=== PATIENT | male | born 1950 | race Caucasian/White ===

== ENCOUNTER 2020-10-06 08:12 | Outpatient (CLI) | payer MEDICARE | END 2020-10-06 08:13 | disposition home or self-care (01) | LOC: CSHWCC 08:12 | PROVIDERS: ATTEND Nurse Practitioner Family | DX: I87.313 Chronic venous hypertension (idiopathic) with ulcer of bilateral lower extremity (principal); I87.2 Venous insufficiency (chronic) (peripheral); L97.212 Non-pressure chronic ulcer of right calf with fat layer exposed; I82.492 Acute embolism and thrombosis of other specified deep vein of left lower extremity; I89.0 Lymphedema, not elsewhere classified; L03.116 Cellulitis of left lower limb; R60.0 Localized edema; G90.09 Other idiopathic peripheral autonomic neuropathy; I87.8 Other specified disorders of veins; B96.89 Other specified bacterial agents as the cause of diseases classified elsewhere; W22.8XXD Striking against or struck by other objects, subsequent encounter | CPT/HCPCS: 99213; G0463 ==

== ENCOUNTER 2022-01-03 08:05 | Outpatient (CLI) | payer MEDICARE | END 2022-01-03 08:06 | disposition home or self-care (01) | LOC: CSHWCC 08:05 | PROVIDERS: ATTEND Nurse Practitioner Family | DX: S91.106D Unspecified open wound of unspecified lesser toe(s) without damage to nail, subsequent encounter (principal); S91.102D Unspecified open wound of left great toe without damage to nail, subsequent encounter; S81.801D Unspecified open wound, right lower leg, subsequent encounter; R60.0 Localized edema | CPT/HCPCS: 29581 ==

== ENCOUNTER 2022-01-18 15:10 | Outpatient (CLI) | payer MEDICARE | END 2022-01-18 15:11 | disposition home or self-care (01) | LOC: CSHWCC 15:10 | PROVIDERS: ATTEND Nurse Practitioner Family | DX: S81.801D Unspecified open wound, right lower leg, subsequent encounter (principal); S91.102D Unspecified open wound of left great toe without damage to nail, subsequent encounter; R60.0 Localized edema ==

== ENCOUNTER 2022-01-24 08:05 | Outpatient (CLI) | payer MEDICARE | END 2022-01-24 08:06 | disposition home or self-care (01) | LOC: CSHWCC 08:05 | PROVIDERS: ATTEND Nurse Practitioner Family | DX: S91.106D Unspecified open wound of unspecified lesser toe(s) without damage to nail, subsequent encounter (principal); S91.102D Unspecified open wound of left great toe without damage to nail, subsequent encounter; S81.801D Unspecified open wound, right lower leg, subsequent encounter; R60.0 Localized edema ==

== ENCOUNTER 2022-02-01 08:09 | Outpatient (CLI) | payer MEDICARE | END 2022-02-01 08:10 | disposition home or self-care (01) | LOC: CSHWCC 08:09 | PROVIDERS: ATTEND Nurse Practitioner Family | DX: I87.332 Chronic venous hypertension (idiopathic) with ulcer and inflammation of left lower extremity (principal); I87.311 Chronic venous hypertension (idiopathic) with ulcer of right lower extremity; L97.822 Non-pressure chronic ulcer of other part of left lower leg with fat layer exposed; L97.521 Non-pressure chronic ulcer of other part of left foot limited to breakdown of skin; L97.821 Non-pressure chronic ulcer of other part of left lower leg limited to breakdown of skin; L97.812 Non-pressure chronic ulcer of other part of right lower leg with fat layer exposed | CPT/HCPCS: 29581 ==

== ENCOUNTER 2022-02-15 08:06 | Outpatient (CLI) | payer MEDICARE | END 2022-02-15 08:07 | disposition home or self-care (01) | LOC: CSHWCC 08:06 | PROVIDERS: ATTEND Nurse Practitioner Family | DX: I87.332 Chronic venous hypertension (idiopathic) with ulcer and inflammation of left lower extremity (principal); I87.311 Chronic venous hypertension (idiopathic) with ulcer of right lower extremity; L97.821 Non-pressure chronic ulcer of other part of left lower leg limited to breakdown of skin; L97.812 Non-pressure chronic ulcer of other part of right lower leg with fat layer exposed; L97.822 Non-pressure chronic ulcer of other part of left lower leg with fat layer exposed; L97.521 Non-pressure chronic ulcer of other part of left foot limited to breakdown of skin; R60.0 Localized edema ==

== ENCOUNTER 2022-03-01 08:03 | Outpatient (CLI) | payer MEDICARE | END 2022-03-01 08:04 | disposition home or self-care (01) | LOC: CSHWCC 08:03 | PROVIDERS: ATTEND Nurse Practitioner Family | DX: R60.0 Localized edema (principal) ==

== ENCOUNTER 2022-03-15 08:02 | Outpatient (CLI) | payer MEDICARE | END 2022-03-15 08:03 | disposition home or self-care (01) | LOC: CSHWCC 08:02 | PROVIDERS: ATTEND Preventive Medicine Undersea and Hyperbaric Medicine | DX: R60.0 Localized edema (principal) | CPT/HCPCS: 97139; G0463; 99213 ==

== ENCOUNTER 2023-06-14 10:58 | Outpatient (CLI) | payer MEDICARE | END 2023-06-14 10:59 | disposition home or self-care (01) | LOC: CSHWCC 10:58 | PROVIDERS: ATTEND Preventive Medicine Undersea and Hyperbaric Medicine | DX: R60.0 Localized edema (principal) | CPT/HCPCS: 97597; G0463; 99213 ==

== ENCOUNTER 2023-07-03 08:58 | Outpatient (CLI) | payer MEDICARE | END 2023-07-03 08:59 | disposition home or self-care (01) | LOC: CSHWCC 08:58 | PROVIDERS: ATTEND Physician Assistant | DX: I87.312 Chronic venous hypertension (idiopathic) with ulcer of left lower extremity (principal); I87.321 Chronic venous hypertension (idiopathic) with inflammation of right lower extremity; L97.502 Non-pressure chronic ulcer of other part of unspecified foot with fat layer exposed; R60.0 Localized edema; L97.529 Non-pressure chronic ulcer of other part of left foot with unspecified severity | CPT/HCPCS: 97597; G0463; 99212 ==

== ENCOUNTER 2023-08-01 08:05 | Outpatient (CLI) | payer MEDICARE | END 2023-08-01 08:06 | disposition home or self-care (01) | LOC: CSHWCC 08:05 | PROVIDERS: ATTEND Preventive Medicine Undersea and Hyperbaric Medicine | DX: I87.312 Chronic venous hypertension (idiopathic) with ulcer of left lower extremity (principal); I87.321 Chronic venous hypertension (idiopathic) with inflammation of right lower extremity; L97.502 Non-pressure chronic ulcer of other part of unspecified foot with fat layer exposed; L97.919 Non-pressure chronic ulcer of unspecified part of right lower leg with unspecified severity; L97.929 Non-pressure chronic ulcer of unspecified part of left lower leg with unspecified severity; R60.0 Localized edema | CPT/HCPCS: 29581 ==

== ENCOUNTER 2023-08-08 10:02 | Outpatient (CLI) | payer MEDICARE | END 2023-08-08 10:03 | disposition home or self-care (01) | LOC: CSHWCC 10:02 | PROVIDERS: ATTEND Physician Assistant | DX: I87.312 Chronic venous hypertension (idiopathic) with ulcer of left lower extremity (principal); I87.321 Chronic venous hypertension (idiopathic) with inflammation of right lower extremity; L97.502 Non-pressure chronic ulcer of other part of unspecified foot with fat layer exposed; R60.0 Localized edema | CPT/HCPCS: 29581 ==

== ENCOUNTER 2023-08-15 08:23 | Outpatient (CLI) | payer MEDICARE | END 2023-08-15 08:24 | disposition home or self-care (01) | LOC: CSHWCC 08:23 | PROVIDERS: ATTEND Physician Assistant | DX: I87.312 Chronic venous hypertension (idiopathic) with ulcer of left lower extremity (principal); I87.321 Chronic venous hypertension (idiopathic) with inflammation of right lower extremity; L97.502 Non-pressure chronic ulcer of other part of unspecified foot with fat layer exposed; R60.0 Localized edema | CPT/HCPCS: 97597 ==

== ENCOUNTER 2023-08-22 08:25 | Outpatient (CLI) | payer MEDICARE | END 2023-08-22 08:26 | disposition home or self-care (01) | LOC: CSHWCC 08:25 | PROVIDERS: ATTEND Nurse Practitioner Family | DX: I87.312 Chronic venous hypertension (idiopathic) with ulcer of left lower extremity (principal); I87.321 Chronic venous hypertension (idiopathic) with inflammation of right lower extremity; L97.502 Non-pressure chronic ulcer of other part of unspecified foot with fat layer exposed; R60.0 Localized edema | CPT/HCPCS: 11042; 87070; 87077; 87186; 87205; G0463; 99214 ==

== ENCOUNTER 2023-08-29 09:44 | Outpatient (CLI) | payer MEDICARE | END 2023-08-29 09:45 | disposition home or self-care (01) | LOC: CSHWCC 09:44 | PROVIDERS: ATTEND Nurse Practitioner Family | DX: I87.312 Chronic venous hypertension (idiopathic) with ulcer of left lower extremity (principal); L97.502 Non-pressure chronic ulcer of other part of unspecified foot with fat layer exposed; R60.0 Localized edema; I87.321 Chronic venous hypertension (idiopathic) with inflammation of right lower extremity; L97.929 Non-pressure chronic ulcer of unspecified part of left lower leg with unspecified severity; L03.116 Cellulitis of left lower limb | CPT/HCPCS: 11042 ==

== ENCOUNTER 2023-09-05 13:06 | Outpatient (CLI) | payer MEDICARE | END 2023-09-05 13:07 | disposition home or self-care (01) | LOC: CSHWCC 13:06 | PROVIDERS: ATTEND Nurse Practitioner Family | DX: I87.312 Chronic venous hypertension (idiopathic) with ulcer of left lower extremity (principal); I87.321 Chronic venous hypertension (idiopathic) with inflammation of right lower extremity; L97.502 Non-pressure chronic ulcer of other part of unspecified foot with fat layer exposed; L03.116 Cellulitis of left lower limb; R60.0 Localized edema | CPT/HCPCS: 11042 ==

== ENCOUNTER 2023-09-12 10:15 | Outpatient (CLI) | payer MEDICARE | END 2023-09-12 10:16 | disposition home or self-care (01) | LOC: CSHWCC 10:15 | PROVIDERS: ATTEND Nurse Practitioner Family | DX: I87.312 Chronic venous hypertension (idiopathic) with ulcer of left lower extremity (principal); I87.321 Chronic venous hypertension (idiopathic) with inflammation of right lower extremity; L97.502 Non-pressure chronic ulcer of other part of unspecified foot with fat layer exposed; L03.116 Cellulitis of left lower limb; R60.0 Localized edema | CPT/HCPCS: 11042 ==

== ENCOUNTER 2023-10-10 12:44 | Outpatient (CLI) | payer MEDICARE | END 2023-10-10 12:45 | disposition home or self-care (01) | LOC: CSHWCC 12:44 | PROVIDERS: ATTEND Nurse Practitioner Family | DX: I87.312 Chronic venous hypertension (idiopathic) with ulcer of left lower extremity (principal); L97.502 Non-pressure chronic ulcer of other part of unspecified foot with fat layer exposed; R60.0 Localized edema | CPT/HCPCS: 11042 ==

== ENCOUNTER 2023-11-21 08:07 | Outpatient (CLI) | payer MEDICARE | END 2023-11-21 08:08 | disposition home or self-care (01) | LOC: CSHWCC 08:07 | PROVIDERS: ATTEND Nurse Practitioner Family | DX: L89.893 Pressure ulcer of other site, stage 3 (principal); I87.312 Chronic venous hypertension (idiopathic) with ulcer of left lower extremity; G90.09 Other idiopathic peripheral autonomic neuropathy; R60.0 Localized edema | CPT/HCPCS: 97597 ==

== ENCOUNTER 2023-12-19 09:25 | Outpatient (CLI) | payer MEDICARE | END 2023-12-19 09:26 | disposition home or self-care (01) | LOC: CSHWCC 09:25 | PROVIDERS: ATTEND Nurse Practitioner Family | DX: L89.893 Pressure ulcer of other site, stage 3 (principal); I87.312 Chronic venous hypertension (idiopathic) with ulcer of left lower extremity; L97.929 Non-pressure chronic ulcer of unspecified part of left lower leg with unspecified severity; G90.09 Other idiopathic peripheral autonomic neuropathy; R60.0 Localized edema | CPT/HCPCS: 11042 ==

== ENCOUNTER 2023-12-26 08:04 | Outpatient (CLI) | payer MEDICARE | END 2023-12-26 08:05 | disposition home or self-care (01) | LOC: CSHWCC 08:04 | PROVIDERS: ATTEND Nurse Practitioner Family | DX: L89.893 Pressure ulcer of other site, stage 3 (principal); I87.312 Chronic venous hypertension (idiopathic) with ulcer of left lower extremity; L97.929 Non-pressure chronic ulcer of unspecified part of left lower leg with unspecified severity; G90.09 Other idiopathic peripheral autonomic neuropathy; R60.0 Localized edema | CPT/HCPCS: 11042 ==

== ENCOUNTER 2024-01-02 08:03 | Outpatient (CLI) | payer MEDICARE | END 2024-01-02 08:04 | disposition home or self-care (01) | LOC: CSHWCC 08:03 | PROVIDERS: ATTEND Nurse Practitioner Family | DX: L89.893 Pressure ulcer of other site, stage 3 (principal); I87.312 Chronic venous hypertension (idiopathic) with ulcer of left lower extremity; L97.929 Non-pressure chronic ulcer of unspecified part of left lower leg with unspecified severity; G90.09 Other idiopathic peripheral autonomic neuropathy; R60.0 Localized edema | CPT/HCPCS: 11042 ==

== ENCOUNTER 2024-01-09 08:50 | Outpatient (CLI) | payer MEDICARE | END 2024-01-09 08:51 | disposition home or self-care (01) | LOC: CSHWCC 08:50 | PROVIDERS: ATTEND Nurse Practitioner Family | DX: L89.893 Pressure ulcer of other site, stage 3 (principal); I87.312 Chronic venous hypertension (idiopathic) with ulcer of left lower extremity; G90.09 Other idiopathic peripheral autonomic neuropathy; R60.0 Localized edema; L97.929 Non-pressure chronic ulcer of unspecified part of left lower leg with unspecified severity | CPT/HCPCS: 97597 ==

== ENCOUNTER 2024-01-23 08:02 | Outpatient (CLI) | payer MEDICARE | END 2024-01-23 08:03 | disposition home or self-care (01) | LOC: CSHWCC 08:02 | PROVIDERS: ATTEND Nurse Practitioner Family | DX: L89.893 Pressure ulcer of other site, stage 3 (principal); I87.312 Chronic venous hypertension (idiopathic) with ulcer of left lower extremity; L97.929 Non-pressure chronic ulcer of unspecified part of left lower leg with unspecified severity; G90.09 Other idiopathic peripheral autonomic neuropathy; R60.0 Localized edema | CPT/HCPCS: 11042 ==

== ENCOUNTER 2024-01-30 09:44 | Outpatient (CLI) | payer MEDICARE | END 2024-01-30 09:45 | disposition home or self-care (01) | LOC: CSHWCC 09:44 | PROVIDERS: ATTEND Nurse Practitioner Family | DX: L89.893 Pressure ulcer of other site, stage 3 (principal); I87.312 Chronic venous hypertension (idiopathic) with ulcer of left lower extremity; G90.9 Disorder of the autonomic nervous system, unspecified; R60.0 Localized edema; L97.929 Non-pressure chronic ulcer of unspecified part of left lower leg with unspecified severity | CPT/HCPCS: 99212; G0463 ==

== ENCOUNTER 2024-02-06 08:16 | Outpatient (CLI) | payer MEDICARE | END 2024-02-06 08:17 | disposition home or self-care (01) | LOC: CSHWCC 08:16 | PROVIDERS: ATTEND Nurse Practitioner Family | DX: L89.893 Pressure ulcer of other site, stage 3 (principal); I87.312 Chronic venous hypertension (idiopathic) with ulcer of left lower extremity; G90.09 Other idiopathic peripheral autonomic neuropathy; R60.0 Localized edema | CPT/HCPCS: 87070; 87077; 87186; 87205 ==

== ENCOUNTER 2024-04-14 08:41 | Outpatient (CLI) | payer MEDICARE | END 2024-04-14 08:42 | disposition home or self-care (01) | LOC: CSHWCC 08:41 | PROVIDERS: ATTEND Nurse Practitioner Family | DX: L89.893 Pressure ulcer of other site, stage 3 (principal); I87.312 Chronic venous hypertension (idiopathic) with ulcer of left lower extremity; L97.929 Non-pressure chronic ulcer of unspecified part of left lower leg with unspecified severity; I73.9 Peripheral vascular disease, unspecified; G90.09 Other idiopathic peripheral autonomic neuropathy | CPT/HCPCS: 11042; G0463; 99213 ==

== ENCOUNTER 2024-04-23 09:51 | Outpatient (CLI) | payer MEDICARE | END 2024-04-23 09:52 | disposition home or self-care (01) | LOC: CSHWCC 09:51 | PROVIDERS: ATTEND Nurse Practitioner Family | DX: L89.893 Pressure ulcer of other site, stage 3 (principal); I83.12 Varicose veins of left lower extremity with inflammation; I73.9 Peripheral vascular disease, unspecified; G90.09 Other idiopathic peripheral autonomic neuropathy | CPT/HCPCS: 97597 ==

== ENCOUNTER 2024-04-30 08:47 | Outpatient (CLI) | payer MEDICARE | END 2024-04-30 08:48 | disposition home or self-care (01) | LOC: CSHWCC 08:47 | PROVIDERS: ATTEND Nurse Practitioner Family | DX: L89.893 Pressure ulcer of other site, stage 3 (principal); I87.312 Chronic venous hypertension (idiopathic) with ulcer of left lower extremity; L97.929 Non-pressure chronic ulcer of unspecified part of left lower leg with unspecified severity; I73.9 Peripheral vascular disease, unspecified; G90.09 Other idiopathic peripheral autonomic neuropathy | CPT/HCPCS: 11042 ==

== ENCOUNTER 2024-05-07 08:37 | Outpatient (CLI) | payer MEDICARE | END 2024-05-07 08:38 | disposition home or self-care (01) | LOC: CSHWCC 08:37 | PROVIDERS: ATTEND Nurse Practitioner Family | DX: L89.893 Pressure ulcer of other site, stage 3 (principal); I87.312 Chronic venous hypertension (idiopathic) with ulcer of left lower extremity; L97.929 Non-pressure chronic ulcer of unspecified part of left lower leg with unspecified severity; I73.9 Peripheral vascular disease, unspecified; G90.09 Other idiopathic peripheral autonomic neuropathy | CPT/HCPCS: 11042 ==

== ENCOUNTER 2024-05-14 09:37 | Outpatient (CLI) | payer MEDICARE | END 2024-05-14 09:38 | disposition home or self-care (01) | LOC: CSHWCC 09:37 | PROVIDERS: ATTEND Nurse Practitioner Family | DX: L89.893 Pressure ulcer of other site, stage 3 (principal); I87.312 Chronic venous hypertension (idiopathic) with ulcer of left lower extremity; G90.09 Other idiopathic peripheral autonomic neuropathy; I73.9 Peripheral vascular disease, unspecified | CPT/HCPCS: 97597 ==

== ENCOUNTER 2024-05-28 08:46 | Outpatient (CLI) | payer MEDICARE | END 2024-05-28 08:47 | disposition home or self-care (01) | LOC: CSHWCC 08:46 | PROVIDERS: ATTEND Nurse Practitioner Family | DX: L89.893 Pressure ulcer of other site, stage 3 (principal); I87.312 Chronic venous hypertension (idiopathic) with ulcer of left lower extremity; L97.929 Non-pressure chronic ulcer of unspecified part of left lower leg with unspecified severity; I73.9 Peripheral vascular disease, unspecified; G90.09 Other idiopathic peripheral autonomic neuropathy | CPT/HCPCS: 97597 ==

== ENCOUNTER 2024-06-11 08:49 | Outpatient (CLI) | payer MEDICARE | END 2024-06-11 08:50 | disposition home or self-care (01) | LOC: CSHWCC 08:49 | PROVIDERS: ATTEND Nurse Practitioner Family | DX: L89.893 Pressure ulcer of other site, stage 3 (principal); I87.312 Chronic venous hypertension (idiopathic) with ulcer of left lower extremity; L97.929 Non-pressure chronic ulcer of unspecified part of left lower leg with unspecified severity; G90.09 Other idiopathic peripheral autonomic neuropathy; I73.9 Peripheral vascular disease, unspecified | CPT/HCPCS: 99212; G0463 ==

== ENCOUNTER 2024-08-06 15:50 | Outpatient (CLI) | payer MEDICARE | END 2024-08-06 15:51 | disposition home or self-care (01) | LOC: CSHWCC 15:50 | PROVIDERS: ATTEND Nurse Practitioner Family | DX: L89.893 Pressure ulcer of other site, stage 3 (principal); I73.9 Peripheral vascular disease, unspecified; I89.0 Lymphedema, not elsewhere classified; G90.09 Other idiopathic peripheral autonomic neuropathy | CPT/HCPCS: 11042; 86141; G0463; 99213 ==

== ENCOUNTER 2024-08-12 11:28 | Outpatient (CLI) | payer MEDICARE | END 2024-08-12 11:29 | disposition home or self-care (01) | LOC: CSHWCC 11:28 | PROVIDERS: ATTEND Nurse Practitioner Family | DX: L89.893 Pressure ulcer of other site, stage 3 (principal); L97.212 Non-pressure chronic ulcer of right calf with fat layer exposed; I73.9 Peripheral vascular disease, unspecified; I89.0 Lymphedema, not elsewhere classified; G90.09 Other idiopathic peripheral autonomic neuropathy ==

== ENCOUNTER → 2024-09-02 | Outpatient (CLI) | payer MEDICARE | LOC: CSHWCC 11:00 | PROVIDERS: ATTEND Nurse Practitioner Family | DX: L89.893 Pressure ulcer of other site, stage 3 (principal); L97.212 Non-pressure chronic ulcer of right calf with fat layer exposed; I73.9 Peripheral vascular disease, unspecified; I89.0 Lymphedema, not elsewhere classified; G90.09 Other idiopathic peripheral autonomic neuropathy | CPT/HCPCS: 29445 ==